=== PATIENT | male | born 1985 | race Caucasian/White ===

== ENCOUNTER 2020-02-02 22:25 | Emergency (ER) | payer SELFPAY ==
[2020-02-02] MEDS ORDERED: Bacitracin Oint 1 GM U/D Packet TOP ONE (22:53)
[2020-02-02] MEDS ORDERED: Acetaminophen/HYDROcodone 325-5 MG Tab PO ONE (23:27)
--- NOTE | 2020-02-02 23:30 | CR ---
Indication: Trauma Technique: Right hand 3 views Comparison: None Findings/Impression: Bones: There is a distracted fracture in the distal tuft in the right 3rd finger. Moderately angulated fractures in the distal 5th metacarpal. No other osseous abnormality. Joint spaces: Unremarkable. Soft tissues: Soft tissue swelling is adjacent to the fractures. Dictated by Kennedy Angelo MD @ Feb 02 2020 11:26PM Signed by Dr. Kennedy Angelo @ Feb 02 2020 11:27PM
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
== END 2020-02-03 00:31 ==
LOC: MW.ED 22:25
DX: S62.334A Displaced fracture of neck of fourth metacarpal bone, right hand, initial encounter for closed fracture (principal); S62.632A Displaced fracture of distal phalanx of right middle finger, initial encounter for closed fracture; F17.210 Nicotine dependence, cigarettes, uncomplicated; Y04.0XXA Assault by unarmed brawl or fight, initial encounter
CPT/HCPCS: 29125; 73130; 99283; A9270; J2001